=== PATIENT | female | born 1995 | race African-American/Black ===

== ENCOUNTER 2016-11-10 08:17 | Emergency (ER) | payer OTHER, BC | END 2016-11-10 09:38 | disposition home or self-care (01) | LOC: ER 08:17 | DX: S16.1XXA Strain of muscle, fascia and tendon at neck level, initial encounter (principal); R51 Headache; J45.909 Unspecified asthma, uncomplicated; Z88.6 Allergy status to analgesic agent; V89.2XXA Person injured in unspecified motor-vehicle accident, traffic, initial encounter | CPT/HCPCS: 72040; 99284; A9270-GY ==